=== PATIENT | male | born 1935 | race Caucasian/White ===

== ENCOUNTER 2020-03-04 05:46 | Day surgery (SDC) | payer MEDICARE, OTHER ==
[2020-02-26 16:09] LABS: CLARITY,URINE CLEAR (Clear); COLOR,URINE YELLOW (Yellow); GLUCOSE, URINE NEGATIVE (Neg); KETONES,URINE NEGATIVE (Neg); LEUKOCYTE ESTERASE ,URINE NEGATIVE (Neg); NITRITES, URINE NEGATIVE (Neg); OCCULT BLOOD,URINE NEGATIVE (Neg); PROTEIN,URINE NEGATIVE (Neg); UROBILINOGEN,URINE 0.2 E.U/dL (0.2-1.0)
[2020-02-26 16:09] LABS: ALBUMIN 4.4 G/DL (3.4-5.0); ALBUMIN/GLOBULIN RATIO 1.1 (1.1-1.5); ALKALINE PHOSPHATASE 80 IU/L (46-116); BLOOD UREA NITROGEN 25 MG/DL (7-18); BUN/CREATININE RATIO 16.9 (5.4-32.0); CALCIUM 9.2 MG/DL (8.5-10.1); CHLORIDE 102 MMOL/L (99-107); CREATININE 1.48 MG/DL (0.60-1.10); PRE OP ALT 18 U/L (30-65); PRE OP ANION GAP 6 (8-16); PRE OP AST 15 U/L (10-37); PRE OP BILIRUB, TOTAL 0.4 MG/DL (0.0-1.0); PRE OP GLUCOSE 121 MG/DL (70-104); PRE OP POTASSIUM 5.1 MMOL/L (3.4-5.1); PRE OP SODIUM 138 MMOL/L (135-145); TOTAL CARBON DIOXIDE 30.3 MMOL/L (24-32); TOTAL PROTEIN 8.3 G/DL (6.4-8.2); eGFR 45 ML/MIN
[2020-02-26 16:12] LABS: UA COLLECTION TYPE CLN CATCH MIDSTREAM
[2020-02-26 16:12] LABS: BASOPHILS # (AUTO) 0.1 X10'3 (0-0.2); BASOPHILS % (AUTO) 1.8 % (0-1); EOSINOPHILS # (AUTO) 0.4 X10'3 (0-0.9); EOSINOPHILS % (AUTO) 5.6 % (0-6); LYMPHOCYTES # (AUTO) 2.1 X10'3 (1.1-4.8); LYMPHOCYTES % (AUTO) 26.6 % (21-51); MEAN CORPUSCULAR VOLUME 99.9 FL (78-98); MEAN PLATELET VOLUME 8.8 FL (7.4-10.4); MONOCYTES # (AUTO) 1.1 X10'3 (0-0.9); MONOCYTES % (AUTO) 13.8 % (2-12); NEUTROPHILS # (AUTO) 4.1 X10'3 (1.8-7.7); NEUTROPHILS % (AUTO) 52.2 % (42-75); PRE OP HEMATOCRIT 31.1 % (42.0-52.0); PRE OP PLATELET COUNT 346 X10'3 (140-440); RED BLOOD COUNT 3.11 X10'6 (4.70-6.10)
[2020-02-26 16:18] LABS: PRE OP HEMOGLOBIN 10.3 g/dL (14.0-17.9)
[2020-03-04] VITALS (15 sets, daily range): BP systolic 113–175; BP diastolic 45–101
[~2020-03-04] VITALS: Ht 172.7 cm; Wt 71.2 kg
[~2020-03-04 05:46] MED LIST: ASPI-1265 PO; CELE-193 PO; DOCUMENT DATE & TIME OF BETA-BLOCKER PO ONE; FLO0.4C PO; HYDR-4353 PO; OMEG-79 PO; OMEP40CA13 PO; SOTA80TA73 PO; [UNRECOGNIZED DRUG - OTHER] IM; [UNRECOGNIZED DRUG - OTHER] PO; ceFOXitin 2GM-NS 100mL ADDvant 100 ML IV ONE; famotidine 20mg tablet PO ONE; ringers solution, lacted 1,000 ML IV SCH
[2020-03-04] MEDS ORDERED: INDOCYANINE GREEN 25 MG/10 ML VIAL IV ONE (06:00)
[2020-03-04] MEDS ORDERED: BUPIVAcaine/PF 2.5 mg/ml (0.25%) 30ml vial ONE (07:16)
[2020-03-04] MEDS ORDERED: midazolam 2 mg/2 ml injection ONE (07:44)
[2020-03-04] MEDS ORDERED: fentaNYL/PF 50MCG/1 ML 2ML syringe ONE (07:44)
[2020-03-04] MEDS ORDERED: rocuronium 10mg/ml inj IV ONE (07:45)
[2020-03-04] MEDS ORDERED: neostigmine methylsulfate 1 MG/ML 10ml vial ONE (07:45)
[2020-03-04] MEDS ORDERED: propofol inj 20 ML IV ONE (07:45)
[2020-03-04] MEDS ORDERED: dexamethasone sod phosphate 4mg/ml inj. ONE (07:45)
[2020-03-04] MEDS ORDERED: LIDOcaine 2% (20mg/ml) 5ml vial ONE (07:46)
[2020-03-04] MEDS ORDERED: glycopyrrolate 0.2mg/ml inj ONE (07:46)
[2020-03-04] MEDS ORDERED: ondansetron/PF 4mg/2ml inj ONE (07:46)
[2020-03-04] MEDS ORDERED: ondansetron/PF 4mg/2ml inj IV PRN (07:50)
[2020-03-04] MEDS ORDERED: morphine 2 MG/ML inj. syringe IV PRN (07:50)
[2020-03-04] MEDS ORDERED: ringers solution, lacted 1,000 ML IV SCH (07:50)
[2020-03-04] MEDS ORDERED: hydrALAZINE 20mg/ml inj. IV PRN (07:50)
[2020-03-04] MEDS ORDERED: fentaNYL/PF 50MCG/1 ML 2ML syringe IV PRN (07:50)
[2020-03-04] MEDS ORDERED: morphine 4 MG/ML inj SYRINge IV PRN (07:50)
[2020-03-04] MEDS ORDERED: labetalol 20mg/4ml (5mg/ml) syringe IV PRN (07:50)
[2020-03-04] MEDS ORDERED: sevoflurane 250ml liquid IH ONE (08:02)
[2020-03-04] MEDS ORDERED: phenylephrine 10mg/ml inj. ONE (08:02)
[2020-03-04] MEDS ORDERED: labetalol 20mg/4ml (5mg/ml) syringe IV ONE (08:48)
--- NOTE | 2020-03-04 09:45 | NUR ---
Received from OR via BED , accompanied by Anesthesiologist DR THORNE and report given by Anesthesiolgist. PATIENT WAKING UP, DENIES PAIN, V/S WNL, NEUROVASCULAR CHECKS INTACT, 20G PIV LUE, SCD ON, BANDAIDS TO LAP SIGHTS OF ABDOMEN CDI
[2020-03-04] MEDS ORDERED: HYDROcodone/acetaminophen 10/325mg tab PO ONE (10:00)
[2020-03-04] MEDS: fentaNYL/PF 50MCG/1 ML 2ML syringe IV PRN ×2 (10:29→11:06)
--- NOTE | 2020-03-04 11:55 | NUR ---
PATIENT A&OX4, DENIES PAIN, V/S WNL, NEUROVASCULAR CHECKS INTACT, 20G PIV LUE D/C, SCD OFF, BANDAIDS TO LAP SIGHTS OF ABDOMEN CDI.. I HAVE REVIEWED D/C INSTRUCTIONS WITH PATIENT AND FAMILY HAVE VERBALIZED UNDERSTANDING.PATIENT WAS D/C HOME WITH ALL BELONGINGS AND FAMILY GAVE TRANSPORT HOME
== END 2020-03-04 11:55 | disposition home or self-care (01) ==
LOC: PAS 05:46
PROVIDERS: ATTEND Surgery
DX: K81.1 Chronic cholecystitis (principal); K42.9 Umbilical hernia without obstruction or gangrene; Z20.828 Contact with and (suspected) exposure to other viral communicable diseases; E11.9 Type 2 diabetes mellitus without complications; G47.30 Sleep apnea, unspecified; I10 Essential (primary) hypertension; E78.5 Hyperlipidemia, unspecified; M16.0 Bilateral primary osteoarthritis of hip; N40.0 Benign prostatic hyperplasia without lower urinary tract symptoms; K21.9 Gastro-esophageal reflux disease without esophagitis; D80.8 Other immunodeficiencies with predominantly antibody defects; D46.9 Myelodysplastic syndrome, unspecified; I48.91 Unspecified atrial fibrillation; M46.24 Osteomyelitis of vertebra, thoracic region; Z88.7 Allergy status to serum and vaccine; Z79.899 Other long term (current) drug therapy; Z87.891 Personal history of nicotine dependence; Z95.810 Presence of automatic (implantable) cardiac defibrillator; Z83.3 Family history of diabetes mellitus; Z80.9 Family history of malignant neoplasm, unspecified
CPT/HCPCS: 36415; 47562; 49585; 71046; 80053; 81003; 82948; 85025; 87635; C1758; J0694; J1100; J2001; J2250; J2370; J2405; J2704; J2710; J3010; J3490; J7120; 88304; A4215; A4618; A7000